=== PATIENT | female | born 2000 | race Caucasian/White ===

== ENCOUNTER → 2018-02-02 | Outpatient (CLI) | payer OTHER ==
[~2018-02-02] VITALS: Ht 160 cm; Wt 52.6 kg
[~2018-02-02] MED LIST: BENTYL 10 MG CA10 M1 PO; COQ-10100 MG PO; MAGOX 400400 MG PO; STRESS FORMULA1 EAC5 PO; YAZ 28 TABLET1 EACH PO; [UNRECOGNIZED DRUG - OTHER] PO
[2018-02-02 13:00] VITALS: BP 110/56
[2018-02-02 13:05] VITALS: BP 110/56
== END ==
LOC: OPONC 06:20
DX: R10.9 Unspecified abdominal pain (principal)
CPT/HCPCS: 95000

== ENCOUNTER → 2018-03-04 | Outpatient (CLI) | payer OTHER ==
[2018-03-04 12:30] VITALS: BP 100/58
== END ==
LOC: OPONC 01:41
DX: R10.9 Unspecified abdominal pain (principal)
CPT/HCPCS: 95000; 95001

== ENCOUNTER → 2018-08-09 | Outpatient (CLI) | payer OTHER ==
[2018-08-09 13:38] VITALS: BP 96/63
--- NOTE | 2018-08-09 14:54 | NUR ---
IN FOR IV FLUIDS WITH VITAMINS FOR ABD PAIN. STATED HAD PAIN THIS AM BUT IS FEELING BETTER NOW. TOLERATED INFUSION WITHOUT INCIDENT. TO RETURN IN 2 WEEKS FOR ANOTHER INFUSION. REMOVED IV AND DISMISSED IN GOOD CONDITION.
== END ==
LOC: OPONC 00:23
DX: R10.9 Unspecified abdominal pain (principal)
CPT/HCPCS: 95000

== ENCOUNTER → 2018-08-26 | Outpatient (CLI) | payer OTHER ==
[2018-08-26 16:18] VITALS: BP 98/64
--- NOTE | 2018-08-26 16:22 | NUR ---
IN FOR VITAMIN INFUSION FOR CHRONIC ABD PAIN. STATED HAS BEEN FEELING VERY TIRED THIS LAST MONTH. ABD PAIN A LITTLE BETTER. TOLERATED INFUSION WITHOUT INCIDENT. REMOVED IV AND DISMISSED IN GOOD CONDITION. SCHEDULED TO RETURN ON Sep.23 FOR NEXT INFUSION.
== END ==
LOC: OPONC 00:39
DX: R10.9 Unspecified abdominal pain (principal)
CPT/HCPCS: 95000

== ENCOUNTER → 2018-09-23 | Outpatient (CLI) | payer OTHER ==
[2018-09-23 12:13] VITALS: BP 116/50
--- NOTE | 2018-09-23 14:46 | NUR ---
IN FOR IV VITAMINS FOR CHRONIC ABD PAIN AND FAIGUE. STATED HAVING CHEST PRESSURE SINCE HAVING AN EGD AND COLONOSCOPY 8 MO. AGO. DENIED PAIN THIS AM. MAIN COMPLAINT IS FATIGUE. INFUSED VITAMINS OVER 1 HOUR AND TOLERATED WELL. REMOVED IV. PATIENT STATED SHE WILL CALL FOR HER NEXT APPT. DISMISSED IN GOOD CONDITION.
== END ==
LOC: OPONC 09-22 12:43
DX: G89.29 Other chronic pain (principal); R10.9 Unspecified abdominal pain; R53.83 Other fatigue
CPT/HCPCS: 95000

== ENCOUNTER → 2020-03-26 | Outpatient (CLI) | payer OTHER | LOC: LAB 06:23 | PROVIDERS: ATTEND Anesthesiology | DX: Z01.812 Encounter for preprocedural laboratory examination (principal); Z11.59 Encounter for screening for other viral diseases ==